=== PATIENT | male | born 1950 | race Caucasian/White ===

== ENCOUNTER 2024-11-27 11:11 | Emergency (ER) | payer OTHER, MEDICARE, SELFPAY ==
[2024-11-27 11:11] VITALS: BP 144/93; PULSE 86; RESP 18; TEMP 36.6; O2SAT 100; BMI 34.2
--- NOTE | 2024-11-27 11:25 | ED.RN ---
Left message for sister Brandie to call ER.
--- NOTE | 2024-11-27 11:58 | CT_ITS ---
EXAM: BRAIN/HEAD WITHOUT CONTRAST CLINICAL HISTORY: Confusion COMPARISON: None. TECHNIQUE: Noncontrast images of the head with multiplanar reconstructions. Dose reduction techniques were used including intermediate exposure control (AEC),iterative reconstruction technique, and/or mA and/or KV dose adjustments based on patient's size. FINDINGS: CT HEAD FINDINGS: No acute intracranial hemorrhage, mass, mass effect, midline shift or pathologic extra-axial fluid collection. No hydrocephalus. Age- appropriate cerebral volume and white matter. Multifocal paranasal sinus opacification including complete opacification of the right maxillary sinus. Chronic changes including asymmetric atrophy of the left side of the cerebellum and prominent cerebral atrophy. The calvarium is grossly intact. CT/Brain/Head without Contrast IMPRESSION: No CT evidence of acute intracranial pathology. Multifocal paranasal sinus opacification including complete opacification of th e right maxillary sinus. Chronic changes including asymmetric atrophy of the left side of the cerebellum and prominent c erebral atrophy. Clinical and imaging surveillance of this is advised. Reading Location: [facility]
--- NOTE | 2024-11-27 11:59 | EDS_ITS ---
HPI <EVANGELIST Green - Last Filed: 11/27/24 17:28> History of Present Illness Chief Complaint: Suicidal Narrative Narrative: 74-year-old male who states he goes to the [facility] reports he has worsening depression and suicidal thoughts. He denies having a plan. He reports calling the police but it is not exactly clear how he got here. He states he lives alone in an apartment and has some difficulty ambulating due to his chronic tremor. He reports having Parkinson's. He thinks he takes medication for depression but does not see anyone for his mental health. He denies prior psychiatric hospitalizations. Patient states he fell 3 weeks ago and hit his head. He thinks he was seen at another emergency room but does not know the details. He states since then he has had difficulty functioning as well. In triage he said he had a headache but he denies that while talking to me. [facility] <EVANGELIST Green - Last Filed: 11/27/24 17:28> [facility] Home Medications ?Medication ?Instructions ?Recorded ?Last Taken ?Type bupropion HCl 150 mg tablet,12 hr 300 mg PO DAILY 06/26 05/08 Unknown History sustained-release propranolol 60 mg capsule,24 60 mg PO DAILY 07/12/14 U nknown History hr,extended release tamsulosin 0.4 mg capsule 0.4 mg PO DAILY 07/12/14 Unk nown History carbidopa 25 mg-levodopa 100 mg 2 tab PO TID 11/27/24 Unknown History tablet finasteride 5 mg tablet (Proscar) 5 mg PO DAILY Unknown History lithium carbonate 300 mg capsule 600 mg PO QHS 5 Unknown History melatonin 3 mg capsule 3 mg PO QHS 11/27/24 Unknown History rosuvastatin 5 mg tablet 5 mg PO DAILY 11/27/24 Unkno wn History venlafaxine 50 mg tablet 150 mg PO DAILY 11/27/24 Unk nown History Allergy/AdvReac Type Severity Reaction Status Date / Time No Known Allergies Allergy Verified 11/27/24 11:23 Social History Smoking Status: Never smoker ROS <EVANGELIST Green - Last Filed: 11/27/24 17:28> ROS ED ROS Narrative Constitutional: Negative for fever, chills. CVS: Negative for chest pain. Respiratory: Negative for shortness of breath, cough. GI: Negative for abdominal pain, nausea, vomiting. Neuro: Negative for headache. EXAM <EVANGELIST Green - Last Filed: 11/27/24 17:28> Physical Exam Narrative Exam Narrative: CONST: Patient sitting in no acute distress. EYES: Normal inspection. NECK: Normal inspection. RESP: No respiratory distress, CTAB. CVS: Regular rate and rhythm, no murmur, no gallop. ABD: Soft and nontender, no guarding or rebound, nondistended. SKIN: Color normal, no rash, warm, dry, intact. EXTREMITIES: Normal appearance, no pedal edema. NEURO: Alert and answering questions appropriately. Resting tremor in upper and lower extremities. PSYCH: Flat affect. Const Vital Signs: 11/27/24 11:11 11/27/24 18:42 Temperature 97.9 F 98.4 F Temperature Source Temporal Pulse Rate 86 86 Respiratory Rate 18 18 Blood Pressure 144/93 H 130/82 H Blood Pressure Mean 110 98 Pulse Ox 100 96 Oxygen Delivery Method Room Air <Dr. Erich Vásquez DO - Last Filed: 11/27/24 22:43> Physical Exam Const Vital Signs: 11/27/24 11:11 11/27/24 18:42 Temperature 97.9 F 98.4 F Temperature Source Temporal Pulse Rate 86 86 Respiratory Rate 18 18 Blood Pressure 144/93 H 130/82 H Blood Pressure Mean 110 98 Pulse Ox 100 96 Oxygen Delivery Method Room Air MDM <EVANGELIST Green - Last Filed: 11/27/24 17:28> MDM MDM Narrative Medical decision making narrative: History gathered from: Patient, PD report 74-year-old male was brought in by the police department for depression and suicidal ideation. He is pink slipped. He told PD he wanted to stab himself. He denies having a plan to me but states he is severely depressed and suicidal. He is awake alert in no distress. He has a chronic tremor but no focal neurological deficits. Screening labs were ordered which show nonspecific leukocytosis at 11.6. He has BUN of 11, creatinine 1.53. This is elevated from 0.94 but that was 7 years ago. This could represent ANGEL or chronic kidney disease and I ordered IV fluids. Urine tox is positive for MDMA. This may be secondary to his medications but I do not have a full list to assess this. Alcohol is negative. Since patient reported a fall 3 weeks ago with head injury I ordered a CT brain scan which shows no acute findings. He is medically cleared. He was evaluated by social work. According to the social service agency director he was hospitalized for suicidal ideation with plan to overdose in 2016. We mutually agree he needs placement and he was accepted by [facility] [employer]. Lab Data Attestation: I reviewed the patient's lab results. Labs: Laboratory Results - last 24 hr 11/27/24 11:50 WBC 11.6 H RBC 4.42 L Hgb 13.8 Hct 43.3 MCV 98.0 H MCH 31.2 MCHC 31.9 L RDW Std Deviation 48.0 H RDW Coeff of Arianna 13.2 Plt Count 549 H MPV 9.1 Immature Gran % (Auto) 0.600 Neut % (Auto) 79.3 H Lymph % (Auto) 11.3 L [place] % (Auto) 6.6 Eos % (Auto) 1.6 Baso % (Auto) 0.6 Absolute Neuts (auto) 9.2 H Absolute Lymphs (auto) 1.31 Nucleated RBC % 0 PT 13.6 INR 1.0 Sodium 137 Potassium 3.6 Chloride 108 H Carbon Dioxide 20.0 L Anion Gap 9 BUN 11 Creatinine 1.53 H Estim Creat Clear Calc 56.13 Est GFR (MDRD) Af Amer 58 L Est GFR (MDRD) Non-Af 48 L BUN/Creatinine Ratio 7.2 L Glucose 91 Calcium 9.9 Urine Color Yellow Urine Clarity Clear Urine pH 6.0 Ur Specific Butler 1.010 Urine Protein 30 H Urine Glucose (UA) Normal Urine Ketones 5 H Urine Occult Blood 25 H Urine Nitrite Negative Urine Bilirubin Negative Urine Urobilinogen Normal Ur Leukocyte Esterase 100 H Urine RBC 0-5 SEEN Urine WBC 5-10 SEEN Ur Squamous Epith Cells 0-5 SEEN Urine Bacteria 0 SEEN Hyaline Casts 0-5 SEEN Urine Mucus 0 SEEN Urine Opiates Screen NEGATIVE Urine Methadone Screen NEGATIVE Ur Barbiturates Screen NEGATIVE Ur Phencyclidine Scrn NEGATIVE Ur Amphetamines Screen NEGATIVE MDMA (Ecstasy) Screen POSITIVE H U Benzodiazepines Scrn NEGATIVE Urine Cocaine Screen NEGATIVE U Cannabinoids Screen NEGATIVE Ur Drug Screen Comment Ethyl Alcohol < 3.0 Radiography Diagnostic Testing: Clinical Impression(s) from Imaging Studies Brain CT 11/27/24 11:58 IMPRESSION: No CT evidence of acute intracranial pathology. Multifocal paranasal sinus opacification including complete opacification of the right maxillary sinus. Chronic changes including asymmetric atrophy of the left side of the cerebellum and prominent cerebral atrophy. Clinical and imaging surveillance of this is advised. Reading [facility] <Dr. Erich Vásquez, DO - Last Filed: 11/27/24 22:43> [facility] Lab Data Labs: Laboratory Results - last 24 hr 11/27/24 11:50 WBC 11.6 H RBC 4.42 L Hgb 13.8 Hct 43.3 MCV 98.0 H MCH 31.2 MCHC 31.9 L RDW Std Deviation 48.0 H RDW Coeff of Arianna 13.2 Plt Count 549 H MPV 9.1 Immature Gran % (Auto) 0.600 Neut % (Auto) 79.3 H Lymph % (Auto) 11.3 L [place] % (Auto) 6.6 Eos % (Auto) 1.6 Baso % (Auto) 0.6 Absolute Neuts (auto) 9.2 H Absolute Lymphs (auto) 1.31 Nucleated RBC % 0 PT 13.6 INR 1.0 Sodium 137 Potassium 3.6 Chloride 108 H Carbon Dioxide 20.0 L Anion Gap 9 BUN 11 Creatinine 1.53 H Estim Creat Clear Calc 56.13 Est GFR (MDRD) Af Amer 58 L Est GFR (MDRD) Non-Af 48 L BUN/Creatinine Ratio 7.2 L Glucose 91 Calcium 9.9 Urine Color Yellow Urine Clarity Clear Urine pH 6.0 Ur Specific Butler 1.010 Urine Protein 30 H Urine Glucose (UA) Normal Urine Ketones 5 H Urine Occult Blood 25 H Urine Nitrite Negative Urine Bilirubin Negative Urine Urobilinogen Normal Ur Leukocyte Esterase 100 H Urine RBC 0-5 SEEN Urine WBC 5-10 SEEN Ur Squamous Epith Cells 0-5 SEEN Urine Bacteria 0 SEEN Hyaline Casts 0-5 SEEN Urine Mucus 0 SEEN Urine Opiates Screen NEGATIVE Urine Methadone Screen NEGATIVE Ur Barbiturates Screen NEGATIVE Ur Phencyclidine Scrn NEGATIVE Ur Amphetamines Screen NEGATIVE MDMA (Ecstasy) Screen POSITIVE H U Benzodiazepines Scrn NEGATIVE Urine Cocaine Screen NEGATIVE U Cannabinoids Screen NEGATIVE Ur Drug Screen Comment Ethyl Alcohol < 3.0 Radiography Diagnostic Testing: Clinical Impression(s) from Imaging Studies Brain CT 11/27/24 11:58 IMPRESSION: No CT evidence of acute intracranial pathology. Multifocal paranasal sinus opacification including complete opacification of the right maxillary sinus. Chronic changes including asymmetric atrophy of the left side of the cerebellum and prominent cerebral atrophy. Clinical and imaging surveillance of this is advised. Reading Location: [facility] Treatment and Re-Evaluation :: I have personally performed a face to face assessment of the patient and have reviewed the KAVON Note. I performed a substantive portion of the visit including all aspects of the following. My ellison findings include: History: The patient presents with depression and suicidal ideation that began yesterday. Patient states it began rather suddenly. Patient denies any specific plan for suicide. Patient states he is eating and sleeping normally. Patient denies any visual or auditory hallucinations. Patient denies any paranoid ideations. Exam: Vital signs are stable. Patient is afebrile. Patient is in no acute distress. Cranial nerves II through XII are intact. There are no focal motor or sensory deficits noted. Patient does have a Parkinson's tremor noted. Heart was regular rate and rhythm. Lungs are clear and equal bilaterally. Abdomen is soft. Bowel sounds are normal. There is no tenderness. Patient does have a flat affect and depressed mood. Patient does admit to suicidal ideations. Medical Decision Making: Medical screening labs will be obtained. CBC will be obtained to assess for leukocytosis and anemia. Basic metabolic profile will be obtained to assess for electrolyte abnormality and renal function. Urinalysis will be obtained to assess for urinary tract infection and hematuria. PT with INR will be obtained to assess for coagulopathy. Urine drug screen will be obtained to assess for substance abuse. Serum alcohol level will be obtained to assess for alcohol intoxication. CT scan of the brain will be obtained to assess for stroke and intracranial bleeding. CBC was reviewed. There is a slight leukocytosis of 11.6. Platelets were slightly elevated at 549. The remainder is within normal limits. PT with INR was reviewed and was normal. Basic metabolic profile was reviewed. Creatinine was slightly elevated at 1.53. CO2 was slightly low at 20. The remainder was essentially within normal limits. Urinalysis was reviewed. Leukocyte esterase with 100 with 5-10 white blood cells. There is no bacteria noted. Urine drug screen was reviewed and was positive for MDMA. Serum alcohol level was reviewed and was less than 3.0. CT scan of the brain was obtained. There is no acute intracranial abnormality. This was interpreted by the radiologist and was also independently reviewed by myself. Patient is medically cleared for psychiatric placement. food production worker evaluated the patient and was able to make arrangements for placement to psychiatric facility. Patient will be transferred to [facility]. Patient and family understood and were agreeable with the plan. All questions were answered. Discharge Plan Triage Chief Complaint: Suicidal ED Midlevel Provider: Kathryn King ED Provider: Erich Vásquez Dx/Rx/DC Orders Clinical Impression: Depression, Suicidal ideation Prescriptions: No Action bupropion HCl 150 MG tablet sustained-release 12 hr 300 mg PO DAILY propranolol 60 MG capsule 60 mg PO DAILY tamsulosin 0.4 MG capsule 0.4 mg PO DAILY venlafaxine 50 mg tablet 150 mg PO DAILY carbidopa-levodopa 25-100 mg tablet 2 tab PO TID finasteride [Proscar] 5 mg tablet 5 mg PO DAILY melatonin 3 mg capsule 3 mg PO QHS lithium carbonate 300 mg capsule 600 mg PO QHS rosuvastatin 5 mg tablet 5 mg PO DAILY Primary Care Provider: Care Physician,No Primary Referrals: Care Physician,No Primary [Primary Care Provider] - Print Language: Chinese Disposition Disposition: Psychiatric Hospital or Unit Discharge Location: [facility] Discharge Date/Time: 11/27/24 18:55
[2024-11-27 12:15] LABS: Absolute Lymphocyte Count 1.31 X10^3/uL (0.83-4.51); Absolute Neutrophil Count 9.2 X10^3/uL (2.0-7.7); Basophil# 0.07 X10^3/uL; Basophil% 0.6 % (0-1); Eosinophil# 0.19 X10^3/uL; Eosinophils% 1.6 % (0-5); Hematocrit 43.3 % (40-54); Hemoglobin 13.8 g/dL (13.0-16.5); Lymphocyte # 1.31 X10^3/ul (0.83-4.51); Lymphocyte % 11.3 % (19-41); Mean Corp Hgb Conc 31.9 g/dL (32-36); Mean Corpuscular Hgb 31.2 pg (27.0-32.0); Mean Platelet Vol. 9.1 fl (6.2-12.0); Monocyte# 0.76 X10^3/uL; Monocyte% 6.6 % (0-10); NRBC Flagged by Analyzer 0 % (0-5); Neutrophil # 9.17 X10^3/uL (2.7-7.7); Neutrophil % 79.3 % (47-70); Platelet Count 549 K/mm3 (150-450); RBC Distribution Width CV 13.2 % (11.6-14.6); Red Blood Count 4.42 M/mm3 (4.6-6.2); White Blood Count 11.6 K/mm3 (4.4-11.0)
[2024-11-27 12:26] LABS: Alcohol, Blood (Medical)-Serum < 3.0 mg/dL
[2024-11-27 12:30] LABS: Anion Gap 9 (5-15); BUN 11 mg/dL (7-18); BUN/Creat Ratio 7.2 RATIO (10-20); Calcium,Total 9.9 mg/dL (8.5-10.1); Chloride 108 mmol/L (98-107); Creatinine, Serum 1.53 mg/dL (0.70-1.30); EST Glomerular Filtration Rate 48 mL/min (>60); Est Glom Filt Rate - Afr Amer 58 mL/min (>60); Estimated Creatinine Clearance 56.13 ml/min; Glucose 91 mg/dL (74-106); Potassium 3.6 mmol/L (3.5-5.1); Sodium Level 137 mmol/L (136-145)
[2024-11-27 12:32] LABS: Amphetamine Urine NEGATIVE (<1000 ng/mL); Barbiturate Urine VISTA NEGATIVE (< 200 ng/mL); Benzodiazepine Urine VISTA NEGATIVE (< 200 ng/mL); Cocaine Urine VISTA NEGATIVE (< 300 ng/mL); Ecstacy Urine VISTA POSITIVE (< 500 ng/mL); Methadone Urine VISTA NEGATIVE (< 300 ng/mL); Opiates Urine NEGATIVE (< 300 ng/mL); PCP Urine NEGATIVE (< 25 ng/mL); THC Urine VISTA NEGATIVE (< 50 ng/mL); Vista UDS pH Range 6
[2024-11-27 12:49] LABS: Bacteria 0 SEEN /hpf (None Seen); Mucous, Urine 0 SEEN /hpf (<or=2+)
[2024-11-27 12:51] LABS: Color, Urine Yellow (Yellow); Glucose, Dipstick Normal (Normal); Ketone-Dipstick 5 mg/dl (Negative); Leukocyte Esterase-Dipstick 100 /ul (Negative); Nitrite-Dipstick Negative (Negative); Occult Blood-Urine 25 /ul (Negative); Protein-Dipstick 30 mg/dl (Negative); Urine Bilirubin Dipstick Negative (Negative); Urine Clarity Clear (Clear); Urine Urobilinogen Normal (Normal)
[2024-11-27 13:02] LABS: Prothrombin Time (Protime)PT. 13.6 SECONDS (11.7-14.9)
[2024-11-27 13:04] LABS: Hyaline Cast 0-5 SEEN /lpf (0-5); Red Blood Cells-Urine 0-5 SEEN /hpf (0-5); Squamous Epithelial Cells - UA 0-5 SEEN /hpf (0-5); White Blood Cells 5-10 SEEN /hpf (0-5)
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
[2024-11-27] MEDS: 0.9% Normal Saline (1000mL) 1,000 ML 999 ML IV (13:34)
[2024-11-27] MEDS: Carbidopa/Levodopa 25/100 Tablet PO (15:31)
--- NOTE | 2024-11-27 15:31 | CM.ED ---
Social Work: brush worker faxed over referral packet to [facility] as they have current open bed. brush worker will wait to hear back. Guera Barbour, RN PROCEDURE, MACHINE PACKAGE SEALER
[2024-11-27] MEDS: Venlafaxine HCl 75 MG Tablet 150 MG PO (16:28)
[2024-11-27 18:42] VITALS: BP 130/82; PULSE 86; RESP 18; TEMP 36.9; O2SAT 96
== END 2024-11-27 18:55 ==
PROVIDERS: Physician Assistant; Emergency Provider Emergency Medicine; Visit Provider Emergency Medicine
DX: F32.A Depression, unspecified (principal); G20.A1 Parkinson's disease without dyskinesia, without mention of fluctuations; S09.90XA Unspecified injury of head, initial encounter; W19.XXXA Unspecified fall, initial encounter; R45.851 Suicidal ideations; Z79.899 Other long term (current) drug therapy
CPT/HCPCS: 70450; 80048; 80307; 81001; 82077; 85025; 85610; 96360; 99284; A4216